=== PATIENT | female | born 1965 | race Two or more races ===

== ENCOUNTER 2021-07-09 02:46 | Emergency (ER) | payer OTHER ==
[~2021-07-09] VITALS: Ht 144.8 cm; Wt 80.7 kg
[2021-07-09 03:28] VITALS: BP 154/82
[2021-07-09] MEDS ORDERED: KETOROLAC TROMETH 60MG/2ML VIAL IM ONE (03:45)
== END 2021-07-09 04:01 | disposition home or self-care (01) ==
LOC: ER 02:50
DX: S86.911A Strain of unspecified muscle(s) and tendon(s) at lower leg level, right leg, initial encounter (principal); E11.9 Type 2 diabetes mellitus without complications; E78.5 Hyperlipidemia, unspecified; X58.XXXA Exposure to other specified factors, initial encounter; Y93.89 Activity, other specified; Y92.89 Other specified places as the place of occurrence of the external cause; Y99.8 Other external cause status
CPT/HCPCS: 73562; 96372; 99283; J1885

== ENCOUNTER 2023-04-16 12:54 | Emergency (ER) | payer OTHER, MEDICAID ==
[~2023-04-16] VITALS: Ht 144.8 cm; Wt 84.5 kg
[2023-04-16] MEDS ORDERED: ASPirin 325 MG TAB PO ONE (13:45)
[2023-04-16 13:50] LABS: Hematocrit 35.8 % (36.0-46.0); Hemoglobin 11.9 g/dL (12.2-16.2); INR 1.01 (0.9-1.15); Mean Corpuscular Hemoglobin 30.9 pg (28.0-32.0); Mean Corpuscular Hgb Conc. 33.1 g/dL (32.0-36.0); Mean Corpuscular Volume 93.2 fL (80.0-100.0); Partial Thromboplastin Time 26.3 sec (24.6-33.4); Red Blood Cells 3.84 10^6/uL (4.0-5.20); Red Cell Distribution Width 15.4 % (11.8-14.3); White Blood Cell 2.2 10^3/uL (4.4-10.8)
[2023-04-16 13:55] LABS: Band Neutrophils % (manual) 0; Basophils % (manual) 0 (0.0-2.0); Blast Cells 0; Metamyelocytes % 0; Myelocytes % 0; Promyelocytes % 0; Reactive Lymphocytes 0
[2023-04-16 14:00] LABS: Albumin 3.8 g/dL (3.4-5.0); Calcium 8.9 mg/dL (8.5-10.1); Magnesium 2.3 mg/dL (1.6-2.6); Potassium 3.9 mmol/L (3.5-5.1)
[2023-04-16 14:05] LABS: BUN/Creatinine Ratio 15.3 (10.0-20.0); Bilirubin, Total 0.9 mg/dL (0.2-1.0); Total Protein 6.8 g/dL (6.4-8.2)
[2023-04-16 14:22] LABS: Eosinophils % (manual) 5 (0-7); Lymphocytes % (manual) 47 (10.0-50.0); Monocytes % (manual) 19 (0-12)
[2023-04-16 15:01] LABS: Urine Amorphous Crystal FEW /hpf (None Seen); Urine Bacteria NONE SEEN /hpf (None Seen); Urine Blood Negative /uL (Negative); Urine Mucus FEW (None Seen); Urine WBC 30 /hpf (0 - 5)
[2023-04-16] MEDS ORDERED: NITR-87 PO (16:10)
[2023-04-16 16:46] VITALS: BP 134/63
== END 2023-04-16 16:49 | disposition home or self-care (01) ==
LOC: ER 12:54
DX: N39.0 Urinary tract infection, site not specified (principal); R00.2 Palpitations; C50.919 Malignant neoplasm of unspecified site of unspecified female breast; E78.5 Hyperlipidemia, unspecified; E11.9 Type 2 diabetes mellitus without complications; Z88.8 Allergy status to other drugs, medicaments and biological substances; Z90.711 Acquired absence of uterus with remaining cervical stump; Z98.890 Other specified postprocedural states
CPT/HCPCS: 36415; 71045; 80053; 81001; 83735; 83880; 84443; 84484; 85007; 85027; 85610; 85730; 93005